=== PATIENT | female | born 1930 | race Hispanic/Latino ===

== ENCOUNTER 2018-10-02 12:25 | Emergency (ER) | payer MEDICARE ==
[~2018-10-02 12:25] MED LIST: ISOVUE-370 76%-LOCM 1 ML ONE
--- NOTE | 2018-10-02 14:05 | CT ---
CT BRAIN: Date: 10/02/18 HISTORY: Fall 3 days ago, concussion. TECHNIQUE: Noncontrast enhanced CT images of brain obtained from the base of the skull through the vertex. Brain and bone windows are obtained. FINDINGS: CT images of the brain demonstrate diffuse cortical atrophy. No evidence of acute intracranial masses , hemorrhages, strokes, or contusions seen. There are permeative lytic changes seen in the occipital region. This appears to have been present on the previous CT from 08/23/16. Significance of these lytic occipital lesions unknown. IMPRESSION: 1. No evidence of acute intracranial masses or traumatic changes seen. 2. Occipital lytic lesions present. Malignancy cannot be excluded. POS: [facility]
[2018-10-02 14:56] LABS: #Monocytes 0.4 thou/uL (0.11-0.59); #Neutrophils 3.9 thou/uL (1.40-6.50); %Basophils 0.3 % (0.0-1.0); %Eosinophils 0.5 % (0.0-10.0); %Lymphocytes 18.2 % (21.0-51.0); %Monocytes 7.8 % (0.0-10.0); %Neutrophils 73.3 % (42.0-75.0); Hemoglobin 14.2 g/dL (12.0-16.0); Mean Corpuscular HGB CONC 32.1 g/dL (32.0-36.0); Mean Corpuscular Hemoglobin 32.7 pg (27.0-31.0); Mean Platelet Volume 6.4 fL (7.4-10.4); Platelet Count 204 thou/uL (130-400); RBC Distribution Width 11.7 % (11.5-14.5); Red Blood Cell (RBC) Count 4.33 mill/uL (4.20-5.40); White Blood Cell (WBC) Count 5.4 thou/uL (4.8-10.8)
[2018-10-02 15:18] LABS: ALT (SGPT) 14 U/L (8-55); AST (SGOT) 21 U/L (5-34); Albumin 4.3 g/dL (3.4-4.8); Alkaline Phosphatase 64 U/L (40-150); Anion Gap 14 mmol/L (10-20); BUN (Urea Nitrogen) 8 mg/dL (9.8-20.1); Bilirubin, Total 0.8 mg/dL (0.2-1.2); CK (CPK) 107 U/L (29-168); Calc. Creatinine Clearance 0 mL/min (70-130); Calcium 9.7 mg/dL (7.8-10.44); Carbon Dioxide 25 mmol/L (23-31); Chloride 105 mmol/L (98-107); Estimated GFR-MDRD 76; Globulin 2.9 g/dL (2.4-3.5); Glucose 106 mg/dL (83-110); Lipase 13 U/L (8-78); Protein, Total 7.2 g/dL (6.0-8.3); Sodium 140 mmol/L (136-145)
--- NOTE | 2018-10-02 16:15 | CT ---
CT CHEST AND ABDOMEN AND PELVIX WITH CONTRAST: Date: 10/02/18 Multiple axial tomograms obtained through chest, abdomen, and pelvis with IV enhancement. Oral contra st was not administered. INDICATION: [facility]. Injury to chest and abdomen. FINDINGS: CT CHEST: The lung herrera are well aerated and are clear. There is no evidence of infiltrate, effusion, or pneu mothorax. The thoracic spine appears intact with degenerative changes noted. The ribs appear intact. IMPRESSION: No acute chest injury identified. CT ABDOMEN AND PELVIS: The liver, spleen, and pancreas are unremarkable. Adrenal glands unremarkable. There are bilateral re nal cystic lesions. No hydronephrosis or enhancing renal mass. Urinary bladder intact and unremarkabl e. Small bowel loops normal. Aorta shows peripheral calcification. No aneurysm or dissection. No mass or adenopathy. There appears to be an atrophic uterus in place. IMPRESSION: No acute intra-abdominal injury or acute finding. CT THORACIC AND LUMBAR SPINE: Degenerative changes are seen throughout the thoracic and lumbar spine. There is mild anterior wedging of the T12 vertebra with mild loss of anterior height estimated at lea und 10%. This is age-indeterminate. Slight retropulsion of the posterior inferior corner of T12 at the T12-L1 disc space, which does flat ten the anterior thecal sac, resulting in mild central canal stenosis. Lumbar vertebra maintain height. There is Grade I spondylolisthesis at L4-5. Degenerative disc change at L4-5 and at L5-S1. IMPRESSION: Mild anterior wedging of the T12 vertebra with slight retropulsion of the posterior inferior corner o f T12 at the T12-L1 disc space as discussed above. POS: [facility]
--- NOTE | 2018-10-02 16:18 | CT ---
CT CERVICAL SPINE WITHOUT CONTRAST: Date: 10/02/18 HISTORY: Patient from [facility] in [place]. Fall 3 days ago. Evaluate for concussion. COMPARISON: None. TECHNIQUE: CT cervical spine is performed without contrast. FINDINGS: There is no craniocervical dissociation. Appropriate alignment of the lateral masses of C1 and C2. Th ere is appropriate alignment of the facets. Odontoid process is intact. There are degenerative changes with loss of disc space height and osteophyte formation at C3-C4 and C 5-C6. 1.8 mm of anterolisthesis of C2 upon C3. Mild facet hypertrophy is noted. There is no prevertebral soft tissue swelling. Mildly heterogeneous thyroid gland. Soft tissue neck structures and upper mediastinal structures are unremarkable. Varying degrees of central canal stenosis. Varying degrees of foraminal narrowing. Evaluation is limi nitesh. Cervical spine vertebral body height is maintained. No fracture. IMPRESSION: No cervical spine fracture. POS: [facility]
[2018-10-02 16:23] LABS: Bilirubin Negative (Negative); Blood, Urine Negative (Negative); Clarity CLEAR (Clear); Glucose, Urine (Dipstick) Negative (Negative); Leukocyte Small (Negative); Nitrite Negative (Negative); Protein, Urine (Dipstick) Negative (Neg-Trace)
[2018-10-02 16:26] LABS: Bacteria/HPF None Seen HPF (None Seen); Hyaline Casts/LPF 0-3 HYALINE CAST LPF (0-3 Hyaline); Pathc Cast-AUWi Flag 0.54 (0-2.49); Squamous Epithelial 0-3 HPF (0-3)
[2018-10-02] MEDS ORDERED: Ondansetron ODT 4 MG TAB ONE (16:27)
[2018-10-02 16:30] LABS: Specific Gravity, Urine 1.048 (1.002-1.036)
[2018-10-02 16:48] LABS: RBC/HPF None Seen HPF (0-3)
== END 2018-10-02 17:40 | disposition home or self-care (01) ==
LOC: ERS 12:25
DX: S09.90XA Unspecified injury of head, initial encounter (principal); E78.5 Hyperlipidemia, unspecified; I10 Essential (primary) hypertension; F32.9 Major depressive disorder, single episode, unspecified; W18.30XA Fall on same level, unspecified, initial encounter
CPT/HCPCS: 70450; 71260; 72125; 74177; 80053; 81003; 81015; 82550; 83690; 84484; 85025; 87086; 93005; Q0162; Q9966